=== PATIENT | female | born 1950 | race Asian ===

== ENCOUNTER 2018-04-27 12:11 | Emergency (ER) | payer MEDICARE, OTHER ==
--- NOTE | 2018-04-27 12:54 | ED Physician Documentation ---
PD HPI HEENT FB - Chief complaint Chief Complaint: Heent - History obtained from History obtained from: Patient - History of Present Illness Timing - onset: Yesterday (Yesterday morning after eating oatmeal with blueberries she developed what she thought was a foreign body sensation in the low throat. She points the hyoid notch as the site and it radiates out to either side. Been persistent ever since and does get a little worse with swallowing but she is able to eat anything she wants and drink as well. She has never had this before. She feels a little sweaty and short of breath with it too. 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 Cardiovascular: Other - Present Medications Home Medications: Ambulatory Orders Medication Instructions Recorded Confirmed Atenolol 100 mg PO DAILY 05/15/14 12/07/15 Cholecalciferol (Vitamin D3) 1,000 unit PO DAILY 05/15/14 06/14/15 [Vitamin D-3] Lisinopril 10 mg PO DAILY 05/15/14 12/07/15 Simvastatin [Zocor] 40 mg PO DAILY 05/15/14 12/07/15 Spironolactone 25 mg PO DAILY 05/15/14 12/07/15 Azithromycin [Zithromax] 250 mg PO DAILY #4 tablet 12/07/15 - Allergies Allergies/Adverse Reactions: Allergies Allergy/AdvReac Type Severity Reaction Status Date / Time No Known Drug Allergies Allergy Verified 04/27/18 12:51 - Social History Does the pt smoke?: No Smoking Status: Never smoker Does the pt drink ETOH?: No Does the pt have substance abuse?: No - Immunizations Immunizations are current?: Yes PD ED PE NORMAL - Vitals Vital signs reviewed: Yes - General General: Alert and oriented X 3, No acute distress - HEENT HEENT: Pharynx benign - Neck Neck: Supple, no meningeal sign, No bony TTP, Thyroid normal - Cardiac Cardiac: RRR, No murmur - Respiratory Respiratory: No respiratory distress, Clear bilaterally - Neuro Neuro: Alert and oriented X 3, Normal speech Results - Vitals Vitals: Vital Signs - 24 hr 04/27/18 12:21 Temperature 36.4 C L Heart Rate 71 Respiratory 16 Rate Blood Pressure 137/75 H O2 Saturation 100 Oxygen O2 Source Room air - EKG (time done) 1305 Rate: Rate (enter#) (64) Rhythm: NSR Social Circle: Normal QRS: LVH (barely) Ischemia: No: ST elevation c/w ischemia, ST depression, Hyperacute T waves, T wave inversion Computer interpretation: Agree with computer - Labs Labs: Laboratory Tests 04/27/18 13:20 Troponin I < 0.04 - Rads (name of study) Soft tissue neck Radiology: EMP read contemporaneously (Some likely thyroid calcifications, no clear acute disease.) PD MEDICAL DECISION MAKING - ED course ED course: Sounds like she had an esophageal scratch from breakfast yesterday, but there was ancillary concern for very atypical chest pain, and given that she had an EKG and a troponin which were without ischemic findings. - Sepsis Event Vital Signs: Vital Signs - 24 hr 04/27/18 12:21 Temperature 36.4 C L Heart Rate 71 Respiratory 16 Rate Blood Pressure 137/75 H O2 Saturation 100 Oxygen O2 Source Room air Departure - Departure Disposition: 01 Home, Self Care Clinical Impression: Throat pain Condition: Good Record reviewed to determine appropriate education?: Yes Instructions: ED Acute Pain UKO Comments: If symptoms continue more than a few days to week, talk to your doctor about an ENT referral for nasal laryngoscopy, if symptoms carley, no specific follow-up is necessary except: Your blood pressure was elevated today on check into the emergency department. This does not mean that you have hypertension, it is a common phenomenon to come to the emergency department and have elevated blood pressure. I recommend that you see your primary care physician within the week to have it rechecked when you are feeling better.
--- NOTE | 2018-04-27 13:35 | XRAY Report ---
Procedure Date: 04/27/2018 Accession Number: [id number] / [id number] Procedure: XR - Neck Soft Tissue CPT Code: FULL RESULT: EXAM: SOFT TISSUE NECK RADIOGRAPHY EXAM DATE: 04/27/2018 01:16 PM. CLINICAL HISTORY: FB sensation Low throat. COMPARISONS: None. TECHNIQUE: 2 views. FINDINGS: Soft Tissues: No prevertebral soft tissue swelling. The epiglottis and aryepiglottic folds are unremarkable. No tonsillar or adenoidal enlargement. No definite radiopaque foreign body. There is densities at the level of the thyroid cartilage which likely all represent cartilaginous calcification although it makes it difficult to exclude a foreign body at that level. Regional Skeleton: Mild C5-C6 disk space narrowing. Other: The visualized lung apices are clear. IMPRESSION: No definite radiopaque foreign body. There aren't densities at the level of the thyroid cartilage which likely all represent cartilaginous calcification although it makes it difficult to exclude a foreign body at that level. If further evaluation were indicated, CT imaging would be recommended. RADIA
[2018-04-27 13:56] VITALS: BP 129/82
== END 2018-04-27 13:55 | disposition home or self-care (01) ==
LOC: ED 12:11
DX: R07.0 Pain in throat (principal); R03.0 Elevated blood-pressure reading, without diagnosis of hypertension
CPT/HCPCS: 36415; 70360; 84484; 93005; 99283

== ENCOUNTER 2018-10-08 10:20 | Outpatient (CLI) | payer MEDICARE, OTHER ==
--- NOTE | 2018-10-08 14:10 | XRAY Report ---
Reason: LUMBAGO, SCIATICA Procedure Date: 10/08/2018 Accession Number: [id number] / [id number] Procedure: XR - Lumbar Spine 2 View CPT Code: FULL RESULT: EXAM: LUMBOSACRAL SPINE RADIOGRAPHY EXAM DATE: 10/08/2018 11:28 AM. CLINICAL HISTORY: Lumbago, sciatica. COMPARISONS: Abdomen and pelvis 01/14/2007 11:37 AM. TECHNIQUE: 3 views. FINDINGS: Alignment: Grade 1 anterolisthesis of L4 on L5, likely pars defect. No scoliosis. Bones: Five xdy-fed-kvugrai lumbar vertebral bodies are present. No fractures. Disks: Mild loss of disk space height at L4-L5 and L5-S1. Facets: Severe facet arthropathy at L4 and L5. Sacroiliac Joints: Unremarkable. Soft Tissues: Soft tissue calcification projecting laterally to the right thorax correlates to a known breast calcification seen on CT in 2006. Round calcification projecting over the right upper quadrant correlates to cholelithiasis, known. 2 dense foci projecting over the left iliac wing are also demonstrated as hyperdense bone lesions in 2007, no significant change accounting for differences in modality. IMPRESSION: Grade 1 anterolisthesis presumably due to L4 pars defect. RADIA
--- NOTE | 2018-10-08 14:34 | XRAY Report ---
Reason: LUMBAGO Procedure Date: 10/08/2018 Accession Number: [id number] / [id number] Procedure: XR - Thoracic Spine 2 View CPT Code: FULL RESULT: EXAM: THORACIC SPINE RADIOGRAPHY EXAM DATE: 10/08/2018 11:28 AM. CLINICAL HISTORY: Lumbago. COMPARISON: 10/12/2009. TECHNIQUE: 2 views. FINDINGS: Alignment: Mild kyphosis without compression fracture or single level defect. No spondylolisthesis. Bones: No fractures or bone lesions. Disks: Mild multilevel disk desiccation with minimal marginal osteophytosis. Soft Tissues: Breast calcification and cholelithiasis are again noted. IMPRESSION: Mild degenerative changes. RADIA
== END 2018-10-08 10:21 | disposition home or self-care (01) ==
LOC: DI 10:20
PROVIDERS: ATTEND Internal Medicine
DX: M47.9 Spondylosis, unspecified (principal); M51.36 Other intervertebral disc degeneration, lumbar region; M51.37 Other intervertebral disc degeneration, lumbosacral region; M43.16 Spondylolisthesis, lumbar region; M51.34 Other intervertebral disc degeneration, thoracic region
CPT/HCPCS: 72070; 72100

== ENCOUNTER 2018-11-18 09:10 | Outpatient (CLI) | payer MEDICARE, OTHER ==
--- NOTE | 2018-11-29 09:20 | Mammography Report ---
Reason: SCREENING MAMMO Procedure Date: 11/18/2018 Accession Number: [id number] / [id number] Procedure: MGN - Screening Mammo Dig Bilat CPT Code: FULL RESULT: EXAM: Screening Mammo Dig Bilat DATE: 11/18/2018 9:53 AM CLINICAL HISTORY: Screening encounter. Family history of breast cancer in the mother at age 70 and a cousin around the age of 40. History of benign cyst removal in the 1970s. TECHNIQUE: Bilateral CC and MLO views were obtained. COMPARISON: 10/30/2016 through 12/28/2008. FINDINGS: The breasts demonstrate scattered fibroglandular densities bilaterally. There are coarse typically benign calcifications. No suspicious masses, clustered microcalcifications, or regions of architectural distortion are identified. IMPRESSION: Benign findings RECOMMENDATION: Routine annual screening unless otherwise clinically indicated. BIRADS CATEGORY 2: Benign findings STANDARD QUALIFYING STATEMENTS: 1. This examination was reviewed with the aid of Computer-Aided Detection (CAD). 2. A negative or benign imaging report should not delay biopsy if clinically suspicious findings are present. Consider surgical consultation if warrented. More than 5% of cancers are not identified by imaging. 3. Dense breasts may obscure an underlying neoplasm.
== END 2018-11-18 09:11 | disposition home or self-care (01) ==
LOC: DI.N 09:10
DX: Z12.31 Encounter for screening mammogram for malignant neoplasm of breast (principal); Z80.3 Family history of malignant neoplasm of breast
CPT/HCPCS: 77067

== ENCOUNTER 2018-12-08 08:05 | Outpatient (CLI) | payer MEDICARE, OTHER | END 2018-12-08 08:06 | disposition home or self-care (01) | LOC: DI 08:05 | PROVIDERS: ATTEND Internal Medicine Cardiovascular Disease | DX: I10 Essential (primary) hypertension (principal); R94.31 Abnormal electrocardiogram [ECG] [EKG] | CPT/HCPCS: 93306 ==

== ENCOUNTER 2019-03-06 09:12 | Outpatient (CLI) | payer MEDICARE, OTHER ==
--- NOTE | 2019-03-07 09:35 | DEXA Report ---
Reason: ASYMPTOMATIC MENOPAUSAL STATE Procedure Date: 03/06/2019 Accession Number: [id number] / [id number] Procedure: DEX - Dexa Spine and/or Hip CPT Code: FULL RESULT: EXAM: Dexa Spine and/or Hip DATE: 03/06/2019 11:00 AM CLINICAL HISTORY: ASYMPTOMATIC MENOPAUSAL STATE TECHNIQUE: Dual energy x-ray absorptiometry (DXA) was performed on a [employer]. Regions measured are the AP Spine, femoral neck, and if needed forearm. COMPARISON: None. In accordance with the International Society for Clinical Densitometry (ISCD) guidelines, data from previous exams may be reanalyzed using current recommendations and techniques. This is done to allow a more accurate basis for comparison with the current study. FINDINGS: The data for the lumbar spine is as follows: BMD (g/cm/cm) T-SCORE Z-SCORE REGION L1 1.071 -0.5 L2 1.246 0.4 L3 1.272 0.6 L4 1.304 0.9 TOTAL 1.234 0.5 NOTE: All evaluable vertebrae are used for classification The data for the hip is as follows: BMD (g/cm/cm) T-SCORE Z-SCORE REGION Neck 0.980 -0.4 TOTAL 1.084 0.6 NOTE: The femoral neck or total proximal femur, whichever is lowest, is used for classification. IMPRESSION: THE WHO CLASSIFICATION BASED ON THE INTERNATIONAL REFERENCE STANDARD IS NORMAL. THE FRACTURE RISK IS NOT INCREASED. RECOMMENDATION: Patients with diagnosis of osteoporosis or osteopenia should have regular bone mineral density assessment. For those eligible for Medicare, routine testing is allowed once every 2 years. Testing frequency can be increased for patients who have rapidly progressing disease or for those who are receiving medical therapy to restore bone mass. COMMENT: World Health Organization (WHO) definitions for osteoporosis and osteopenia: NORMAL BMD: T-score at -1.0 or higher, fracture risk is low OSTEOPENIA BMD: T-score between -1.0 and -2.5, fracture risk is increased. OSTEOPOROSIS BMD: T-score at -2.5 or lower, fracture risk is high. National Osteoporosis Foundation recommends: 1. Obtain adequate dietary calcium (at least 1200 mg per day) and vitamin D (400-800 international units per day). 2. Participate, as appropriate, in regular weightbearing and muscle-strengthening exercise. 3. Avoid tobacco use and reduce alcohol and caffeine intake. 4. For more detailed information see the website at www.NOF.org.
== END 2019-03-06 09:13 | disposition home or self-care (01) ==
LOC: DI 09:12
PROVIDERS: ATTEND Internal Medicine
DX: Z13.820 Encounter for screening for osteoporosis (principal); Z78.0 Asymptomatic menopausal state
CPT/HCPCS: 77080

== ENCOUNTER 2019-05-15 19:04 | Outpatient (CLI) | payer MEDICARE, OTHER ==
--- NOTE | 2019-05-16 08:07 | Ultrasound Report ---
Reason: PELVIC PAIN ACUTE Procedure Date: 05/15/2019 Accession Number: [id number] / [id number] Procedure: US - Pelvic w/Transvaginal CPT Code: FULL RESULT: EXAM: PELVIC ULTRASOUND EXAM DATE: 05/15/2019 07:13 PM. CLINICAL HISTORY: Acute pelvic pain. COMPARISON: None. TECHNIQUE: Realtime transabdominal pelvic scan performed to identify the uterus and adnexa and as an overview of other pelvic structures, followed by transvaginal scan to provide greater detail of the uterus and adnexa, with static image documentation. FINDINGS: Uterus: Surgically absent. Right Ovary: Not visualized. No masses identified. Left Ovary: Not visualized. No masses identified. Free Fluid: None. Other: None. IMPRESSION: 1. Status post hysterectomy. 2. Ovaries not visualized bilaterally and appear obscured by bowel gas. 3. No free fluid. RADIA
== END 2019-05-15 19:05 | disposition home or self-care (01) ==
LOC: DI 19:04
PROVIDERS: ATTEND Nurse Practitioner Obstetrics & Gynecology
DX: R10.2 Pelvic and perineal pain (principal); Z90.710 Acquired absence of both cervix and uterus
CPT/HCPCS: 76830; 76856

== ENCOUNTER 2019-05-30 16:33 | Outpatient (CLI) | payer MEDICARE, OTHER ==
--- NOTE | 2019-05-30 17:03 | CT Report ---
Reason: DIZZINESS AND GIDDINESS, Procedure Date: 05/30/2019 Accession Number: [id number] / [id number] Procedure: CT - HEAD WO CPT Code: FULL RESULT: EXAM: CT HEAD EXAM DATE: 05/30/2019 04:43 PM. CLINICAL HISTORY: DIZZINESS AND GIDDINESS. COMPARISON: None. TECHNIQUE: Multiaxial CT images were obtained from the foramen magnum to the vertex. Reformats: Sagittal and coronal. IV contrast: None. In accordance with CT protocol optimization, one or more of the following dose reduction techniques were utilized for this exam: automated exposure control, adjustment of mA and/or KV based on patient size, or use of iterative reconstructive technique. FINDINGS: Parenchyma: No mass-effect or midline shift. No evidence for edema. No intracranial hemorrhage. Extraaxial Spaces: Normal for age. No subdural or epidural collections identified. Ventricles: Normal in size and position. Sinuses: Minimal ethmoid sinus mucosal thickening. Bones: No evidence of fracture or calvarial defect. IMPRESSION: No acute or focal intracranial abnormality seen. RADIA The call report notification system was initiated by Dr. Nancy Lutz at 05:01 PM on 05/30/2019. ADDENDUM: 05/30/19 17:16 The above call report findings were discussed with Kylie Camp by Dr. Nancy Lutz at 05:16 PM on 05/30/2019.
== END 2019-05-30 16:34 | disposition home or self-care (01) ==
LOC: DI 16:33
PROVIDERS: ATTEND Internal Medicine
DX: R42 Dizziness and giddiness (principal); R55 Syncope and collapse; R51 Headache
CPT/HCPCS: 70450

== ENCOUNTER 2020-08-30 10:01 | Outpatient (CLI) | payer MEDICARE, OTHER ==
--- NOTE | 2020-08-31 14:35 | Mammography Report ---
BILATERAL DIGITAL SCREENING MAMMOGRAM 3D/2D: 08/30/2020 CLINICAL: Family history of breast cancer. Routine screening. Comparison is made to exams dated: 11/18/2018 mammogram - [facility], 11/01/2017 mamm ogram, 10/30/2016 mammogram, 10/28/2015 mammogram, 10/27/2014 mammogram, and 01/12/2014 mammogram - [facility]. There are scattered fibroglandular elements in both breasts. There are benign calcifications in the right breast. No significant masses, calcifications, or other findings are seen in either breast. There has been no significant interval change. IMPRESSION: BENIGN There is no mammographic evidence of malignancy. A 1 year screening mammogram is recommended. This exam was interpreted at Station ID: [id number]. NOTE: For mammograms, a report in lay terms will be sent to the patient. Approximately 15% of breast malignancies will not be visualized mammographically. In the management of a palpable breast mass, a negative mammogram must not discourage biopsy of a clinically suspicious lesion. Electronically Signed By: Jie aguilar/fouzia:08/30/2020 12:14:43 ACR BI-RADS Category 2: Benign Finding(s) 3342F PARENCHYMAL PATTERN: (A) - The breast(s) demonstrate(s) scattered fibroglandular densities. BI-RADS CATEGORY: (2) - 2 RECOMMENDATION: (ANNUAL) - Recommend routine annual screening mammography. [id number] 1 year screening LATERALITY: (B)
== END 2020-08-30 10:02 | disposition home or self-care (01) ==
LOC: DI.N 10:01
PROVIDERS: ATTEND Internal Medicine
DX: Z12.31 Encounter for screening mammogram for malignant neoplasm of breast (principal); Z80.3 Family history of malignant neoplasm of breast

== ENCOUNTER 2020-09-23 12:40 | Outpatient (CLI) | payer MEDICARE, OTHER ==
--- NOTE | 2020-09-23 13:20 | Ultrasound Report ---
PROCEDURE: Head or Neck Soft Tissue INDICATIONS: LUMP ON CHIN TECHNIQUE: Real time scanning was performed of the neck region of interest, with image documentation . COMPARISON: None FINDINGS: At the midline inferior to the chin, there is a solid appearing hypoechoic mass with areas of thinning internal vascularity. It measures 9 x 7 x 8 mm. Similar focus is noted adjacent on the l eft measuring 8 x 5 x 9 mm. IMPRESSION: The appearance of the smaller lesion may represent a small lymph node. However, the larger focus, if a lymph node has lost appearance of normal architecture. Etiology other mass lesions cannot be exclud ed. As clinically indicated, CT is recommended for further evaluation. Reviewed by: Kaylie Edwards MD on 09/23/2020 1:18 PM PST Approved by: Kaylie Edwards MD on 09/23/2020 1:18 PM PST Station ID: [id number]
== END 2020-09-23 12:41 | disposition home or self-care (01) ==
LOC: DI 12:40
PROVIDERS: ATTEND Internal Medicine
DX: R93.89 Abnormal findings on diagnostic imaging of other specified body structures (principal)

== ENCOUNTER 2020-09-25 22:23 | Emergency (ER) | payer MEDICARE, OTHER ==
[2020-09-25] MEDS ORDERED: lisinopriL 5 MG TABLET PO STA (23:14)
--- NOTE | 2020-09-25 23:17 | ED Physician Documentation ---
History of Present Illness - Stated complaint Stated Complaint: ELEVATED BP - Chief complaint Chief Complaint: General - History obtained from History obtained from: Patient - Additonal information Additional information: Patient comes emergency department chief complaint of elevated blood pressure on and off today. She states she got up to go the bathroom tonight and felt a swishing feeling in her ears and wondered if her blood pressure was up again. She states she checked it and her systolic was over 170 which caused her to be concerned. She denies chest pain, shortness of breath, or neurologic deficits. She is on lisinopril and atenolol for blood pressure at home. No recent dose changes. She does note that she was recently started on glimepiride for her diabetes. The patient does extensive numbers of blood pressure checks throughout the day and often checks 20-30 times, writing each value down in a record book which she is brought to the emergency department with her. Review of Systems Ten Systems: 10 systems reviewed and negative Constitutional: reports: Reviewed and negative Eyes: reports: Reviewed and negative Ears: reports: Reviewed and negative Nose: reports: Reviewed and negative Throat: reports: Reviewed and negative Cardiac: reports: Reviewed and negative Respiratory: reports: Reviewed and negative GI: reports: Reviewed and negative : reports: Reviewed and negative Skin: reports: Reviewed and negative Musculoskeletal: reports: Reviewed and negative Neurologic: reports: Reviewed and negative Psychiatric: reports: Reviewed and negative Endocrine: reports: Reviewed and negative Immunocompromised: reports: Reviewed and negative PD PAST MEDICAL HISTORY - Past Medical History Past Medical History: Yes Cardiovascular: Hypertension, High cholesterol, Atrial fibrillation, Other Respiratory: None Neuro: None Endocrine/Autoimmune: None GI: GI bleed, Chronic diarrhea, Hemorrhoids 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 : None HEENT: None Psych: Anxiety Musculoskeletal: Chronic back pain Derm: Other - Past Surgical History Past Surgical History: Yes 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 Cardiovascular: Other - Present Medications Home Medications: Ambulatory Orders Medication Instructions Recorded Confirmed Atenolol 100 mg PO DAILY 05/15/14 09/25/20 Cholecalciferol (Vitamin D3) 1,000 unit PO DAILY 05/15/14 09/25/20 [Vitamin D-3] Lisinopril 10 mg PO DAILY 05/15/14 09/25/20 Simvastatin [Zocor] 40 mg PO DAILY 05/15/14 09/25/20 Aspirin Chewable [St Jamin 81 mg PO DAILY 09/25/20 09/25/20 Aspirin] Glimepiride [Amaryl] 2 mg PO 0800 09/25/20 09/25/20 - Allergies Allergies/Adverse Reactions: Allergies Allergy/AdvReac Type Severity Reaction Status Date / Time No Known Drug Allergies Allergy Verified 09/25/20 22:35 - Social History Does the pt smoke?: No Smoking Status: Never smoker Does the pt drink ETOH?: No Does the pt have substance abuse?: No - Immunizations Immunizations are current?: Yes - POLST Patient has POLST: No PD ED PE NORMAL - Vitals Vital signs reviewed: Yes - General General: Alert and oriented X 3, No acute distress - HEENT HEENT: Atraumatic, PERRL, EOMI, Moist mucous membranes - Neck Neck: Supple, no meningeal sign - Cardiac Cardiac: RRR, No murmur - Respiratory Respiratory: No respiratory distress, Clear bilaterally - Abdomen Abdomen: Soft, Non tender, Non distended - Derm Derm: Warm and dry - Extremities Extremities: No deformity - Neuro Neuro: Alert and oriented X 3 - Psych Psych: Normal mood, Normal affect Results - Vitals Vitals: Oxygen O2 Source Room air PD MEDICAL DECISION MAKING - ED course Complexity details: considered differential, d/w patient ED course: I discussed with the patient that we would give her a little bit extra of her lisinopril, but that it would be only for tonight. I have discussed with the patient that it is normal for her blood pressure to fluctuate throughout the day, and that it is not helpful to worry so much about each elevated number. The patient is asymptomatic and I find no evidence of endorgan damage. I have recommended to the patient that she speak with her primary care physician about whether her medication should be changed if she continues to notice high readings for more than the next few days. At this point in time, I do not find a reason to work the patient up in the emergency department, as she is asymptomatic. We have discussed home management of symptoms, as well as usual indications for return. Departure - Departure Disposition: 01 Home, Self Care Clinical Impression: Hypertension Qualifiers: Hypertension type: essential hypertension Qualified Code(s): I10 - Essential (primary) hypertension Condition: Stable Instructions: ED HTN Established Discharge Date/Time: 09/25/20 23:39
[2020-09-25 23:39] VITALS: BP 155/75
== END 2020-09-25 23:39 | disposition home or self-care (01) ==
LOC: ED 22:23
DX: I10 Essential (primary) hypertension (principal); E11.9 Type 2 diabetes mellitus without complications; Z79.84 Long term (current) use of oral hypoglycemic drugs; Z79.82 Long term (current) use of aspirin
CPT/HCPCS: 99282; 99284; A9270

== ENCOUNTER 2020-10-11 09:48 | Outpatient (CLI) | payer MEDICARE, OTHER ==
[2020-10-11 10:26] LABS: CREATININE 0.8 mg/dL (0.4-1.0)
[2020-10-11] MEDS ORDERED: IOVERSOL 320 100 ML VIAL IVP ONE (10:31)
--- NOTE | 2020-10-11 14:55 | CT Report ---
PROCEDURE: SOFT TISSUE NECK W INDICATIONS: ANTERIOR NECK LUMP CONTRAST: IV CONTRAST: Optiray 320 ml: 100 PO CONTRAST: *NO PO CONTRAST TECHNIQUE: After the administration of intravenous contrast, 3.0 mm axial sections acquired from the sella to th e aortic arch. Additional oblique axial 3.0 mm sections acquired through the pharynx. 3 mm thick co rigo reformats were generated. For radiation dose reduction, the following was used: automated exp osure control, adjustment of mA and/or kV according to patient size. COMPARISON: CT neck 05/25/2015 FINDINGS: Image quality: Excellent. Lymph nodes: There are borderline enlarged lymph nodes within the neck, most notably at Level Ia, I b and IIa, with the largest measuring 9 mm. The area of palpable concern in the anterior neck corres ponds to a 9 mm Level Ia lymph node. Vessels: Visualized vasculature appears patent. Neck spaces: The oropharynx, nasopharynx, and pharynx demonstrate no mucosal lesions. The vocal cor ds, false vocal cords, pyriform sinuses, epiglottis, vallecula, and tongue base all appear normal. E xtramucosal spaces appear unremarkable. Glands: The parotid and submandibular glands appear normal. The thyroid is normal in size. Miscellaneous: Visualized brain and orbits appear normal. Lung apices appear clear. Superficial so ft tissues appear normal. Bones: No suspicious bony lesions. Visualized sinuses and mastoids appear unremarkable. IMPRESSION: 1. Borderline lymph nodes within the neck as described above. This is could be reactive in nature, recommend clinical correlation and followup imaging as needed. Reviewed by: Kaylie Edwards MD on 10/11/2020 2:54 PM PST Approved by: Kaylie Edwards MD on 10/11/2020 2:54 PM PST Station ID: [id number]
== END 2020-10-11 09:49 | disposition home or self-care (01) ==
LOC: DI 09:48
PROVIDERS: ATTEND Internal Medicine
DX: R22.1 Localized swelling, mass and lump, neck (principal); Z79.899 Other long term (current) drug therapy
CPT/HCPCS: 36415; 70491; 82565; Q9967

== ENCOUNTER 2021-08-04 10:16 | Outpatient (CLI) | payer MEDICARE, OTHER ==
--- NOTE | 2021-08-04 10:39 | XRAY Report ---
PROCEDURE: Shoulder 3 View RT INDICATIONS: RT SHOULDER PAIN TECHNIQUE: 3 views of the shoulder were acquired. COMPARISON: None. FINDINGS: No acute fracture. Severe AC joint degeneration. Small dystrophic desiccation projecting at the infer ior aspect of the acromion Scattered subchondral sclerosis and spurring. IMPRESSION: Right shoulder joint degeneration as above If the patient's pain or other symptoms persist, consider further evaluation with MRI. Reviewed by: Ammon Lopez MD on 08/04/2021 10:38 AM PDT Approved by: Ammon Lopez MD on 08/04/2021 10:38 AM PDT Station ID: [id number]
== END 2021-08-04 10:17 | disposition home or self-care (01) ==
LOC: DI 10:16
PROVIDERS: ATTEND Internal Medicine
DX: M19.011 Primary osteoarthritis, right shoulder (principal)

== ENCOUNTER 2021-09-21 12:10 | Outpatient (CLI) | payer MEDICARE, OTHER ==
--- NOTE | 2021-09-22 10:30 | Mammography Report ---
BILATERAL DIGITAL DIAGNOSTIC MAMMOGRAM 3D/2D: 09/21/2021 CLINICAL: Nipple discharge, right breast, not bloody. Comparison is made to exams dated: 08/30/2020 mammogram, 11/18/2018 mammogram - [facility], 11/01/2017 mammogram, 10/30/2016 mammogram, 10/28/2015 mammogram, and 10/27/2014 mammogram - [facility]. There are scattered fibroglandular elements in both breasts. There are benign calcifications in the right breast. No significant masses, calcifications, or other findings are seen in either breast. There has been no significant interval change. IMPRESSION: BENIGN There is no mammographic evidence of malignancy. A 1 year screening mammogram is recommended. This exam was interpreted at Station ID: [id number]. NOTE: For mammograms, a report in lay terms will be sent to the patient. Approximately 15% of breast malignancies will not be visualized mammographically. In the management of a palpable breast mass, a negative mammogram must not discourage biopsy of a clinically suspicious lesion. Electronically Signed By: Williams Rene M.D., jr/fouzia:09/21/2021 13:23:08 ACR BI-RADS Category 2: Benign Finding(s) 3342F PARENCHYMAL PATTERN: (A) - The breast(s) demonstrate(s) scattered fibroglandular densities. BI-RADS CATEGORY: (2) - 2 RECOMMENDATION: (ANNUAL) - Recommend routine annual screening mammography. [id number] 1 year screening LATERALITY: (B)
== END 2021-09-21 12:11 | disposition home or self-care (01) ==
LOC: DI 12:10
PROVIDERS: ATTEND Internal Medicine
DX: N64.52 Nipple discharge (principal)

== ENCOUNTER 2021-12-15 08:00 | Outpatient (CLI) | payer MEDICARE, OTHER ==
[2021-12-15 16:37] LABS: CALCIUM 9.3 mg/dL (8.5-10.3); CREATININE 0.8 mg/dL (0.4-1.0); POTASSIUM 3.8 mmol/L (3.5-5.0)
[2021-12-15 20:38] LABS: ESTIMATED AVERAGE GLUCOSE 171 mg/dL (70-100); HEMOGLOBIN A1c% 7.6 % (4.27-6.07)
== END 2021-12-15 23:59 ==
LOC: LAB.R 08:00
PROVIDERS: ATTEND Internal Medicine
DX: E11.9 Type 2 diabetes mellitus without complications (principal); Z79.899 Other long term (current) drug therapy
CPT/HCPCS: 80048; 82607; 83036

== ENCOUNTER 2022-01-09 08:00 | Outpatient (CLI) | payer MEDICARE, OTHER | END 2022-01-09 23:59 | disposition home or self-care (01) | LOC: LAB.R 08:00 | PROVIDERS: ATTEND Internal Medicine | DX: Z20.822 Contact with and (suspected) exposure to COVID-19 (principal) ==

== ENCOUNTER 2023-02-07 07:36 | Outpatient (CLI) | payer MEDICARE ==
--- NOTE | 2023-02-07 10:59 | Mammography Report ---
BILATERAL DIGITAL DIAGNOSTIC MAMMOGRAM 3D/2D: 02/07/2023 CLINICAL: Right intermittent breast pain. Due for bilateral imaging. Comparison is made to exams dated: 09/21/2021 mammogram, 08/30/2020 mammogram, 11/18/2018 mammogram - [facility], 11/01/2017 mammogram, 10/30/2016 mammogram, and 10/28/2015 mammogram - [facility]. There are scattered areas of fibroglandular density in both breasts (category b / 25%-50% glandular t issue). No significant masses, calcifications, or other findings are seen in either breast. IMPRESSION: NEGATIVE There is no abnormality seen in the right breast to correspond with the intermittent diffuse pain, ho wever, clinical correlation and clinical followup are recommended. Ultrasound was not performed due to diffuse intermittent nature. There is no mammographic evidence of malignancy. Return to annual mammogram screening schedule is rec ommended. Based on the Tyrer Cuzick model (a risk assessment model) the patients lifetime risk is 7.5% and her 10 year risk is 6.2%. According to the ACR, ACS, and NCCN guidelines, an annual breast MRI exam [place] with mammogram is recommended if the patients lifetime risk is 20% or greater. This exam was interpreted at Station ID: [id number]. NOTE: For mammograms, a report in lay terms will be sent to the patient. Approximately 15% of breast malignancies will not be visualized mammographically. In the management of a palpable breast mass, a negative mammogram must not discourage biopsy of a clinically suspicious lesion. Electronically Signed By: Oswald Fowler M.D. lc/:02/07/2023 08:29:49 ACR BI-RADS Category 1: Negative 3341F PARENCHYMAL PATTERN: (A) - The breast(s) demonstrate(s) scattered fibroglandular densities. BI-RADS CATEGORY: (1) - 1 Mammogram [id number] return to screening LATERALITY: (B)
== END 2023-02-07 07:37 | disposition home or self-care (01) ==
LOC: DI 07:36
PROVIDERS: ATTEND Internal Medicine
DX: N64.4 Mastodynia (principal)